=== PATIENT | male | born 1995 | race African-American/Black ===

== ENCOUNTER 2019-10-06 15:07 | Emergency (ER) | payer MEDICAID ==
[~2019-10-06] VITALS: Ht 193 cm; Wt 99.0 kg
[2019-10-06] MEDS ORDERED: ONDANSETRON 4MG ODT PO ONE (18:00)
[2019-10-06] MEDS ORDERED: IBUPROFEN 600MG TABLET PO ONE (18:00)
[2019-10-06 18:02] LABS: HEMOGLOBIN. 16.8 g/dL (14.0-18.0); MEAN CORPUSCULAR HEMOGLOBIN 33.5 pg (28.0-32.0); MEAN CORPUSCULAR VOLUME 95.6 fL (80.0-94.0); MEAN PLATELET VOLUME 8.2 fl (7.4-10.4); PLATELET 179 x1000/uL (130-400); RED BLOOD CELL COUNT 5.02 mill/uL (4.7-6.1)
[2019-10-06 18:10] LABS: CHLORIDE 108 mEq/L (98-107)
[2019-10-06 18:45] LABS: CLARITY URINE CLEAR (CLEAR); COLOR URINE YELLOW (YELLOW); KETONES URINE 2+ (NEGATIVE); LEUKOCYTE ESTERASE URINE NEGATIVE (NEGATIVE); NITRITE URINE NEGATIVE (NEGATIVE); OCCULT BLOOD URINE NEGATIVE (NEGATIVE); PH URINE 5.5 (4.5-8.0); PROTEIN URINE 2+ (NEGATIVE); SPECIFIC GRAVITY URINE 1.039 (1.005-1.030)
[2019-10-06 20:55] LABS: PLATELET ESTIMATE NORMAL
[2019-10-07] MEDS ORDERED: FAMOTIDINE 20MG TABLET PO ONE
[2019-10-07] MEDS ORDERED: ONDANSETRON 4MG ODT PO ONE
[2019-10-07] MEDS ORDERED: ACETAMINOPHEN 325MG TABLET PO ONE
[2019-10-07 01:30] VITALS: BP 110/75
== END 2019-10-07 03:18 | disposition home or self-care (01) ==
LOC: ER 15:07
DX: R11.2 Nausea with vomiting, unspecified (principal); R19.7 Diarrhea, unspecified; R10.84 Generalized abdominal pain; R03.0 Elevated blood-pressure reading, without diagnosis of hypertension; Z87.828 Personal history of other (healed) physical injury and trauma
CPT/HCPCS: 36415; 80053; 81003; 83690; 85025; 99284; Q0162